=== PATIENT | male | born 1960 | race African-American/Black ===

== ENCOUNTER 2020-04-22 21:34 | Emergency (ER) | payer BC, OTHER ==
[~2020-04-22] VITALS: Ht 175.3 cm; Wt 86.2 kg
[~2020-04-22 21:34] MED LIST: AMLO10TA59 PO
--- NOTE | 2020-04-22 21:50 | NUR ---
MD ELIF SANDRA in room to do MSE.
[2020-04-22] MEDS ORDERED: ASPIRIN 81 MG TAB.CHEW PO ONE (22:00)
[2020-04-22] MEDS ORDERED: NITROGLYCERIN OINT 1 GM PACKET TP ONE ×2 (22:00→22:25)
--- NOTE | 2020-04-22 22:10 | NUR ---
garage door technician in room to draw blood.
--- NOTE | 2020-04-22 22:16 | NUR ---
alarm field technician in room to take x-ray.
--- NOTE | 2020-04-22 22:20 | NUR ---
Patient states feeling nauseous and dizzy. Patient became hypotensive with systolic BP in 80s, MD Jhonathan Farah notified. Nitro-Bid not given at this time. New orders given for 1L saline bolus, oxygen 2LPM via N/C, and Zofran 4mg IV.
--- NOTE | 2020-04-22 22:20 | NUR ---
Note undone in EDM - 04/22/20 at 2259 by EDITH Patient became hypotensive with systolic BP in 80s, MD Jhonathan Farah notified. Nitro-Bid not given at this time. New orders given for 1L saline bolus, oxygen 2LPM via N/C, and Zofran 4mg IV.
[2020-04-22 22:24] LABS: BASOPHILS # (AUTO) 0.1 K/uL (0.0-8.0); BASOPHILS % (AUTO) 0.6 % (0.0-2.0); EOSINOPHILS # (AUTO) 0.6 K/uL (0.0-0.7); EOSINOPHILS % (AUTO) 5.9 % (0.0-7.0); HEMATOCRIT 38.8 % (36.7-47.1); HEMOGLOBIN 13.3 g/dL (12.5-16.3); LYMPHOCYTES % (AUTO) 20.7 % (20.5-51.5); MEAN CORPUSCULAR HGB CONC 34 g/dL (32.5-36.3); MEAN CORPUSCULAR VOLUME 92.9 fL (73.0-96.2); MONOCYTES # (AUTO) 0.8 K/uL (2.0-10.0); MONOCYTES % (AUTO) 8.2 % (0.0-11.0); NEUTROPHILS # (AUTO) 6.3 K/uL (1.8-8.9); NEUTROPHILS % (AUTO) 64.6 % (38.5-71.5); PLATELET COUNT (AUTO) 169 K/uL (152-348); RED BLOOD CELL COUNT(AUTO) 4.17 MIL/uL (4.06-5.63); WHITE BLOOD COUNT (AUTO) 9.8 K/uL (3.6-10.2)
[2020-04-22] MEDS ORDERED: ASPIRIN 81 MG TAB.CHEW ONE (22:25)
[2020-04-22 22:31] LABS: CREATININE 1.1 mg/dL (0.6-1.3); POTASSIUM 3.4 mmol/L (3.5-5.1)
[2020-04-22] MEDS ORDERED: ONDANSETRON 4 MG/2 ML VIAL ONE (22:35)
[2020-04-22 22:44] LABS: BILIRUBIN,DIRECT 0.1 mg/dL (0.0-0.2); BILIRUBIN,TOTAL 0.3 mg/dL (0.2-1.0)
[2020-04-22] MEDS ORDERED: IV NORMAL SALINE 1000 ML BAG IV ONE (22:45)
[2020-04-22] MEDS ORDERED: ONDANSETRON 4 MG/2 ML VIAL IV ONE (22:45)
--- NOTE | 2020-04-22 22:55 | NUR ---
Patient states no longer feeling dizzy and nauseous. Blood pressure increased to 132/81, HR 81, RR 18.
--- NOTE | 2020-04-22 23:10 | NUR ---
Patient is resting in bed, eyes closed. No acute distress noted at this time.
--- NOTE | 2020-04-23 00:10 | NUR ---
Patient resting on bed, eyes closed. No acute distressed noted at this time.
[2020-04-23] MEDS ORDERED: HYDR-3974 PO (01:30)
[2020-04-23 02:00] VITALS: BP 121/73
--- NOTE | 2020-04-23 02:00 | NUR ---
Patient discharged to home in stable condition. Written and verbal after care instructions given. Patient verbalizes understanding of instructions. Stressed follow up or return to ER for worsening s/s. Patient ambulates with steady gait, received Rx, left with all belongings.
== END 2020-04-23 02:00 | disposition home or self-care (01) ==
LOC: ER 21:35
DX: R07.9 Chest pain, unspecified (principal); R55 Syncope and collapse; I11.9 Hypertensive heart disease without heart failure; Z82.49 Family history of ischemic heart disease and other diseases of the circulatory system
CPT/HCPCS: 36415 ×2; 71045; 80048; 80076; 83880; 84484 ×2; 85025; 85379; 93005 ×2; 96361; 96374; 99285; J2405; 70030-TC; A4663; J7030

== ENCOUNTER 2020-07-22 16:31 | Emergency (ER) | payer BC, OTHER ==
[~2020-07-22] VITALS: Ht 175.3 cm; Wt 84.8 kg
[~2020-07-22 16:31] MED LIST changes: +HYDR-3974 PO
--- NOTE | 2020-07-22 16:40 | NUR ---
Dr Overton at the bedside for MSE.
--- NOTE | 2020-07-22 16:45 | NUR ---
PT has own F/C and leg bag, no urine in th bag, Dr Overton made aware. Asperated urine from third port, and urine started to flow to leg bag. Pt states feeling better and less pressure in pelvic.
[2020-07-22] MEDS ORDERED: SULF1TAB48 PO (16:51)
[2020-07-22 17:43] LABS: *BILIRUBIN,URIN NEGATIVE (NEGATIVE); *BLOOD, URINE 3+ (NEGATIVE); *CLARITY,URINE SLIGHTLY CLOUDY (CLEAR); *COLOR,URINE YELLOW (YELLOW); *KETONES,URINE NEGATIVE (NEGATIVE); LEUKOCYTE ESTERASE ,URINE NEGATIVE (NEGATIVE); NITRITE, URINE NEGATIVE (NEGATIVE); UGLUCOSE NEGATIVE (NEGATIVE)
[2020-07-22 17:58] LABS: BACTERIA,URINE FEW /HPF (NONE SEEN); RBC,URINE 20-50 /HPF (0-3); SQUAMOUS EPITHELIAL CELL,UR FEW /HPF (NONE SEEN); YEAST,URINE FEW /HPF (NONE SEEN)
[2020-07-22 18:04] VITALS: BP 132/89
--- NOTE | 2020-07-22 18:04 | NUR ---
Patient discharged to home in stable condition. Written and verbal after care instructions given. Patient verbalizes understanding of instructions. Stressed follow up or return to ER for worsening s/s.
== END 2020-07-22 18:05 | disposition home or self-care (01) ==
LOC: ER 16:33
DX: N40.1 Benign prostatic hyperplasia with lower urinary tract symptoms (principal); R33.8 Other retention of urine; Z82.49 Family history of ischemic heart disease and other diseases of the circulatory system
CPT/HCPCS: 87086; A4663